=== PATIENT | female | born 1995 | race Caucasian/White ===

== ENCOUNTER 2019-04-29 13:59 | Emergency (ER) | payer SELFPAY ==
[~2019-04-29] VITALS: Ht 165.1 cm; Wt 160.0 kg
[2019-04-29 14:09] VITALS: BP 158/82
[2019-04-29] MEDS ORDERED: AMOX1TAB61 PO (15:03)
--- NOTE | 2019-04-29 15:03 | PHYS DOC ---
Past Medical History Past Medical History: No Pertinent History Past Surgical History: Tonsillectomy Smoking Status: Current Every Day Smoker Alcohol Use: None Drug Use: None Adult General Chief Complaint Chief Complaint: EARACHE/EAR PAIN [facility] HPI Patient is a 23 year old female who presents with L ear pain that has been ongoing for 3 days. The patient also states she has been having left upper mouth pain. She reports her pain a 7 out of 10 in severity and sharp. Denies fever. Denies any other symptoms. Denies any medical history. Complete ROS were reviewed and found to be within normal limits, except as documented in the HPI Allergies Allergies Allergies Coded Allergies Type Severity Reaction Last Updated Verified No Known Drug Allergies 12/06/13 No Physical Exam Physical Exam Constitutional: Well developed, well nourished, no acute distress, non-toxic appearance. [] HENT: Normocephalic, atraumatic, bilateral external ears normal, tympanic membranes are not bulging, erythematous, or red, oropharynx moist, no oral exudates, nose normal. Tooth # 16 appears infected. Eyes: PERRLA, EOMI, conjunctiva normal, no discharge. [] Skin: Warm, dry, no erythema, no rash. [] Neurologic: Alert and oriented X 3, normal motor function, normal sensory function, no focal deficits noted. [] Psychologic: Affect normal, judgement normal, mood normal. [] Current Patient Data Vital Signs Vital Signs Date Time Temp Pulse Resp B/P (MAP) Pulse Ox O2 Delivery O2 Flow Rate FiO2 04/29/19 14:09 98.8 83 16 158/82 (107) 100 Room Air 98.8 EKG EKG [] Radiology/Procedures Radiology/Procedures [] Course & Med Decision Making Course & Med Decision Making Pertinent Labs and Imaging studies reviewed. (See chart for details) Patient appears to have a dental infection. Will place on Augmentin and have follow up with dentist. Damien Disclaimer Dragon Disclaimer This electronic medical record was generated, in whole or in part, using a voice recognition dictation system. Departure Departure Impression: Primary Impression: Dental infection Disposition: HOME, SELF-CARE Condition: STABLE Referrals: NO PCP (PCP) Patient Instructions: Carbamide Peroxide dental solution Additional Instructions: Thank you for visiting [facility]. We appreciate you trusting us with your care. If any additional problems come up don't hesitate to return to visit us. Please follow up with your primary care provider so they can plan additional care if needed and know about the problem that you had. If symptoms worsen come back to the Emergency Department. Any concerning symptoms that start such as chest pain, shortness of air, weakness or numbness on one side of the body, running high fevers or any other concerning symptoms return to the ER. You have been prescribed an antibiotic today to help fight your infection. Please take all of the antibiotic as directed. If after 48 hours the infection is not improving, please return for more care. If the infection worsens, return to ER for additional care. Scripts Amoxicillin/Potassium Clav (AUGMENTIN 875-125 TABLET) 1 Each Tablet 1 TAB PO BID for 10 Days, #20 TAB 0 Refills Prov: HAROLDO AUSTIN APRN 04/29/19 HAROLDO AUSTIN APRN Apr 29, 2019 15:03
== END 2019-04-29 15:12 | disposition home or self-care (01) ==
LOC: ER 13:59
DX: K04.7 Periapical abscess without sinus (principal); H92.02 Otalgia, left ear; K13.79 Other lesions of oral mucosa; F17.200 Nicotine dependence, unspecified, uncomplicated
CPT/HCPCS: 99283

== ENCOUNTER 2019-05-31 14:48 | Emergency (ER) | payer SELFPAY ==
[~2019-05-31] VITALS: Ht 167.6 cm; Wt 72.0 kg
[~2019-05-31 14:48] MED LIST: AMOX1TAB61 PO
[2019-05-31 16:20] LABS: BILIRUBIN,URINE NEGATIVE (NEG); CLARITY,URINE CLEAR; COLOR,URINE YELLOW; NITRITE,URINE NEGATIVE (NEG); PROTEIN,URINE NEGATIVE (NEG-TRACE); UROBILINOGEN,URINE 0.2 mg/dL (0.2 mg/dL)
[2019-05-31] MEDS: ONDANSETRON ODT 4 MG TAB.RAPDIS. PO ONE (16:30)
[2019-05-31 16:34] LABS: SQUAMOUS EPITHELIAL CELL,UR FEW /LPF
[2019-05-31 16:36] LABS: BACTERIA,URINE FEW /HPF (0-FEW)
[2019-05-31 16:38] VITALS: BP 101/57
[2019-05-31 16:55] LABS: INFLUENZA A PATIENT NEGATIVE (NEGATIVE); INFLUENZA B PATIENT NEGATIVE (NEGATIVE)
[2019-05-31] MEDS ORDERED: ONDA-84 PO (17:15)
--- NOTE | 2019-05-31 17:15 | PHYS DOC ---
Past Medical History Past Medical History: No Pertinent History Past Surgical History: Tonsillectomy Smoking Status: Current Every Day Smoker Alcohol Use: None Drug Use: None Adult General Chief Complaint Chief Complaint: FLU SYMPTOM HPI HPI Patient is a 23 year old female who presents to the emergency department with complaints of nausea, vomiting, diarrhea, body aches, chills, tactile fever, and abdominal cramping since last night. She denies any known exposure to anyone with influenza. Patient denies any blood in her vomit or her stools. She states that she has vomited so many times that she has lost count today. She denies any cough, shortness of breath, wheezing, dizziness, syncope, chest pain, dysuria, hematuria, ear pain, or sore throat. She currently rates her discomfort a 10 out of 10 on the pain scale, she denies any alleviating factors. Review of Systems Review of Systems Complete ROS is negative unless otherwise noted in HPI. Current Medications Current Medications Current Medications Medications (Trade) Dose Ordered Sig/Ricco Start Time Stop Time Status Last Admin Dose Admin Ondansetron HCl (Zofran Odt) 4 mg 1X ONCE 05/31/19 16:30 05/31/19 16:31 DC 05/31/19 16:30 4 MG Allergies Allergies Allergies Coded Allergies Type Severity Reaction Last Updated Verified No Known Drug Allergies 12/06/13 No Physical Exam Physical Exam See Above Constitutional: Well developed, well nourished, no acute distress, ill appearance. [] HENT: Normocephalic, atraumatic, bilateral external ears normal, nose normal. [] Eyes: PERRLA, EOMI, conjunctiva normal, no discharge. [] Neck: Normal range of motion, no stridor. [] Cardiovascular:Heart rate regular rhythm, no murmur [] Lungs & Thorax: Bilateral breath sounds clear to auscultation, Respirations even and unlabored, no retractions, no respiratory distress [] Abdomen: Bowel sounds normal, soft, no tenderness, no masses, no pulsatile masses. [] Skin: Warm, dry, no erythema, no rash. [] Extremities: No tenderness, no cyanosis, no clubbing, ROM intact, no edema. [] Neurologic: Alert and oriented X 3, no focal deficits noted. [] Psychologic: Affect normal, judgement normal, mood normal. [] Current Patient Data Vital Signs Vital Signs Date Time Temp Pulse Resp B/P (MAP) Pulse Ox O2 Delivery O2 Flow Rate FiO2 05/31/19 16:38 82 18 101/57 (72) Room Air 05/31/19 15:15 98.1 100 98.1 Lab Values Laboratory Tests Test 05/31/19 16:00 05/31/19 16:05 05/31/19 16:07 Influenza Type A Antigen Negative (NEGATIVE) Influenza Type B Antigen Negative (NEGATIVE) Urine Collection Type Unknown Urine Color Yellow Urine Clarity Clear Urine pH 5.0 (<5.0-8.0) Urine Specific Rudy >=1.030 (1.000-1.030) Urine Protein Negative mg/dL (NEG-TRACE) Urine Glucose (UA) Negative mg/dL (NEG) Urine Ketones (Stick) 40 mg/dL (NEG) Urine Blood Small (NEG) Urine Nitrite Negative (NEG) Urine Bilirubin Negative (NEG) Urine Urobilinogen Dipstick 0.2 mg/dL (0.2 mg/dL) Urine Leukocyte Esterase Negative (NEG) Urine RBC 6-10 /HPF (0-2) Urine WBC 1-4 /HPF (0-4) Urine Squamous Epithelial Cells Few /LPF Urine Bacteria Few /HPF (0-FEW) Urine Mucus Marked /LPF POC Urine HCG, Qualitative Hcg negative (Negative) EKG EKG [] Radiology/Procedures Radiology/Procedures Rapid strep is negative [] Course & Med Decision Making Course & Med Decision Making Pertinent Labs and Imaging studies reviewed. (See chart for details) Patient is a 23-year-old female who presented to the emergency room with complaints of flulike symptoms that began yesterday evening. Her rapid influenza testing was negative. The patient was given 4 mg of Zofran in the emergency department and a fluid challenge. She is able to tolerate the fluids without vomiting. Advised patient that this is likely due to a viral illness, recommend clear fluids for 24 hours and advance diet as tolerated. Will prescribe Zofran for use at home. Follow-up with primary care doctor symptoms persist, return to the ER if symptoms worsen. Patient verbalized an understanding of home care, medications, follow-up, and return to ED instructions and was in agreement with the plan of care. [] Dragon Disclaimer Dragon Disclaimer This electronic medical record was generated, in whole or in part, using a voice recognition dictation system. Departure Departure Impression: Primary Impression: Nausea & vomiting Disposition: 01 HOME, SELF-CARE Condition: STABLE Referrals: NO PCP (PCP) Patient Instructions: Viral Syndrome Additional Instructions: Fill the prescription and take as directed. Alternate Tylenol and ibuprofen as needed for fever. Recommend clear fluids for 24 hours then advance diet as tolerated. Follow up with your primary care doctor if symptoms persist, return to the ER symptoms worsen. Scripts Ondansetron Hcl (ONDANSETRON HCL) 4 Mg Tablet 1 TAB PO PRN Q6HRS PRN for NAUSEA/VOMITING for 3 Days, #10 TAB 0 Refills Prov: KORY RENEE APRN 05/31/19 Problem Qualifiers Primary Impression: Nausea & vomiting Vomiting type: unspecified Vomiting Intractability: unspecified Qualified Codes: R11.2 - Nausea with vomiting, unspecified KORY RENEE SKI EDGE PAINTER May 31, 2019 17:15
== END 2019-05-31 17:30 | disposition home or self-care (01) ==
LOC: ER 14:48
DX: R11.2 Nausea with vomiting, unspecified (principal); R19.7 Diarrhea, unspecified; R50.9 Fever, unspecified; F17.200 Nicotine dependence, unspecified, uncomplicated; Z90.89 Acquired absence of other organs
CPT/HCPCS: 81001; 81025; 87804; 99283; Q0162

== ENCOUNTER 2020-02-01 11:46 | Emergency (ER) | payer SELFPAY ==
[~2020-02-01] VITALS: Ht 167.6 cm; Wt 63.0 kg
[~2020-02-01 11:46] MED LIST changes: +ONDA-84 PO
[2020-02-01 12:24] VITALS: BP 118/59
[2020-02-01 12:31] LABS: BILIRUBIN,URINE NEGATIVE (NEG); CLARITY,URINE CLEAR; COLOR,URINE YELLOW; NITRITE,URINE NEGATIVE (NEG); PROTEIN,URINE NEGATIVE (NEG-TRACE); UROBILINOGEN,URINE 0.2 mg/dL (0.2 mg/dL)
--- NOTE | 2020-02-01 12:35 | PHYS DOC ---
Past Medical History Past Medical History: No Pertinent History (JONELLE CHAO APRN) Past Surgical History: Tonsillectomy (JONELLE CHAO APRN) Smoking Status: Current Every Day Smoker Alcohol Use: None Drug Use: None (JONELLE CHAO APRN) General Adult EDM: Chief Complaint: PAIN ON URINATION HPI: HPI: Patient is a 24 year [id number] female who presents to the ED today complaining of dysuria for 3 days. Denies any fever. Reports slight left flank pain. Denies any hematuria. Denies any nausea vomiting. (JONELLE CHAO APRN) Review of Systems: Review of Systems: Constitutional: Denies fever or chills. [] Eyes: Denies change in visual acuity. [] HENT: Denies nasal congestion or sore throat. [] Respiratory: Denies cough or shortness of breath. [] Cardiovascular: Denies chest pain or edema. [] GI: Denies abdominal pain, nausea, vomiting, bloody stools or diarrhea. [] : Reports dysuria Musculoskeletal: Denies back pain or joint pain. [] Integument: Denies rash. [] Neurologic: Denies headache, focal weakness or sensory changes. [] Psychiatric: Denies depression or anxiety. [] (JONELLE CHAO APRN) Heart Score: Risk Factors: Risk Factors: DM, Current or recent (<one month) smoker, HTN, HLP, family histo ry of CAD, obesity. Risk Scores: Score 0 - 3: 2.5% MACE over next 6 weeks - Discharge Home Score 4 - 6: 20.3% MACE over next 6 weeks - Admit for Clinical Observation Score 7 - 10: 72.7% MACE over next 6 weeks - Early Invasive Strategies (JONELLE CHAO APRN) Allergies: Allergies: Allergies Coded Allergies Type Severity Reaction Last Updated Verified No Known Drug Allergies 12/06/13 No (JONELLE CHAO APRN) Physical Exam: PE: Constitutional: Well developed, well nourished, no acute distress, non-toxic appearance. [] HENT: Normocephalic, atraumatic, bilateral external ears normal, oropharynx moist, no oral exudates, nose normal. [] Eyes: PERRLA, EOMI, conjunctiva normal, no discharge. [] Neck: Normal range of motion, no tenderness, supple, no stridor. [] Cardiovascular:Heart rate regular rhythm, no murmur [] Lungs & Thorax: Bilateral breath sounds clear to auscultation [] Abdomen: Bowel sounds normal, soft, no tenderness, no masses, no pulsatile masses. [] Skin: Warm, dry, no erythema, no rash. [] Back: No tenderness, no CVA tenderness. [] Extremities: No tenderness, no cyanosis, no clubbing, ROM intact, no edema. [] Neurologic: Alert and oriented X 3, normal motor function, normal sensory function, no focal deficits noted. [] Psychologic: Affect normal, judgement normal, mood normal. [] (JONELLE CHAO APRN) Current Patient Data: Labs: Laboratory Tests Test 02/01/20 12:23 POC Urine HCG, Qualitative Hcg negative (Negative) Vital Signs: Vital Signs Date Time Temp Pulse Resp B/P (MAP) Pulse Ox O2 Delivery O2 Flow Rate FiO2 02/01/20 12:24 98.0 100 18 118/59 (78) 100 Room Air 98.0 (JONELLE CHAO APRN) EKG: EKG: [] (JONELLE CHAO APRN) Radiology/Procedures: Radiology/Procedures: [] (JONELLE CHAO APRN) Course & Med Decision Making: Course & Med Decision Making Pertinent Labs and Imaging studies reviewed. (See chart for details) This is a 24-year-old female patient presented to the ED today with dysuria for 3 days. UA negative for infection. Negative for blood in urine. Patient was discharged home with Pyridium. Instructed to take Tylenol and Motrin as needed for pain instructed to push fluids. Follow-up with PCP in a week if symptoms persist. At the end of the visit she asked for a work note. Work note was given for 2 days. (JONELLE CHAO APRN) Course & Med Decision Making I have reviewed the PA/SECURITY GUARD SUPERVISOR's note and Plan of Care. I was available for consultation as needed during the patient's visit in the emergency department. I agree with the clinical impression, plans and disposition. (MARIA ELENA JOHNSON MD) Damien Disclaimer: Damien Disclaimer: This electronic medical record was generated, in whole or in part, using a voice recognition dictation system. (JONELLE CHAO APRN) Departure Departure Impression: Primary Impression: Dysuria Disposition: 01 DC HOME SELF CARE/HOMELESS Condition: STABLE Referrals: NO PCP (PCP) follow up with your doctor in 1-2 weeks Patient Instructions: Dysuria-Brief Additional Instructions: You were evaluated in the emergency room for pain with urination. Your urine analysis is negative for infection. Take the prescribed Pyridium as ordered. You can take Tylenol or Motrin for pain. Push fluids. Follow-up with your doctor in 1 to 2 weeks, come back to the ED at any point symptoms worsen Scripts Phenazopyridine Hcl (PYRIDIUM) 100 Mg Tablet 1 TAB PO TID for urinary discomfort for 2 Days, #6 TAB 0 Refills Prov: JONELLE CHAO APRN 02/01/20 JONELLE CHAO APRN Feb 01, 2020 12:35 MARIA ELENA JOHNSON MD Feb 01, 2020 13:27
[2020-02-01 12:39] LABS: BACTERIA,URINE FEW /HPF (0-FEW); RBC,URINE OCC /HPF (0-2); WBC,URINE OCC /HPF (0-4)
[2020-02-01] MEDS ORDERED: PHEN100T82 PO (13:05)
== END 2020-02-01 13:16 | disposition home or self-care (01) ==
LOC: ER 11:46
DX: R30.0 Dysuria (principal); R10.9 Unspecified abdominal pain; F17.200 Nicotine dependence, unspecified, uncomplicated
CPT/HCPCS: 81001; 81025; 99283